=== PATIENT | male | born 1950 | race Caucasian/White ===

== ENCOUNTER 2022-11-17 23:50 | Emergency (ER) | payer OTHER, MEDICARE, BC ==
[2022-11-17] MEDS ORDERED: traMADol 50 MG Tab PO ONE (23:51)
[2022-11-18] MEDS ORDERED: Sodium Chloride 0.9% 10 ML Syringe FLUSH PRN (00:14)
[2022-11-18] MEDS ORDERED: Ondansetron 4 MG/2 ML SDV IVPUSH ONE (00:16)
[2022-11-18] MEDS ORDERED: Iopamidol 612 MG/ML 100 ML Bottle IVPUSH ONE (00:37)
[2022-11-18 00:45] LABS: ANION GAP 11.5 mEq/L (7-13)
[2022-11-18] MEDS ORDERED: fentaNYL 100 MCG/2 ML SDV IVPUSH ONE ×3 (01:23→05:22)
[2022-11-18] MEDS ORDERED: Simethicone 80 MG Tab.Chew PO ONE (02:18)
[2022-11-18] MEDS ORDERED: GI Cocktail Oral Solution 30 ML PO ONE (02:18)
[2022-11-18 04:49] LABS: CORONAVIRUS COVID-19 NAA NEGATIVE (NEGATIVE); RESPIRATORY SYNCYTIAL VIR NAA NEGATIVE (NEGATIVE)
[2022-11-18] MEDS ORDERED: traMADol 50 MG Tab ONE (05:24)
== END 2022-11-18 05:33 | disposition home or self-care (01) ==
LOC: DL.ED 23:50
DX: R10.13 Epigastric pain (principal); Z20.822 Contact with and (suspected) exposure to COVID-19
CPT/HCPCS: 0241U; 36415; 74177; 80053; 83690; 84484; 85025; 93005; 96374; 96375; 96376; 99284; A9270; J2405; J3010; J3490; Q9967